=== PATIENT | male | born 1995 | race Caucasian/White ===

== ENCOUNTER 2016-09-07 09:50 | Emergency (ER) | payer BC ==
[2016-09-07 10:14] VITALS: BP 159/81
--- NOTE | 2016-09-07 11:27 | UC ---
Skin Complaint HPI - HPI Summary HPI Summary: itchy rash in groin and right ac and right ankle worse at night - History of Current Complaint Chief Complaint: UCSkin Time Seen by Provider: 09/07/16 11:00 Stated Complaint: ALLERGIC REACTION-RASH Hx Obtained From: Patient Onset/Duration: Sudden Onset, Lasting Days - 3, Still Present Timing: Constant Onset Severity: Mild Current Severity: Mild Pain Intensity: 4 Pain Scale Used: 0-10 Numeric Location: Discrete - right ankle right AC and Groin Character: Pruritus, Hives, Redness Aggravating: Nothing Alleviating: Nothing Associated Signs & Symptoms: Positive: Rash Related History: Possible Reaction to: Insect - Allergy/Home Medications Allergies/Adverse Reactions: Allergies Allergy/AdvReac Type Severity Reaction Status Date / Time No Known Allergies Allergy Verified 09/07/16 10:14 Home Medications: Home Medications Fexofenadine (NF) [Marilee 180 (NF)] 1 tab PO DAILY 09/07/16 [History Confirmed 09/07/16] Review of Systems Constitutional: Negative Skin: Rash - itchy red Eyes: Negative ENT: Negative Respiratory: Negative Cardiovascular: Negative Gastrointestinal: Negative Genitourinary: Negative Motor: Negative Neurovascular: Negative Musculoskeletal: Negative Neurological: Negative Psychological: Negative All Other Systems Reviewed And Are Negative: Yes PMH/Surg Hx/FS Hx/Imm Hx Previously Healthy: Yes Endocrine History Of: Denies: Diabetes, Thyroid Disease, Hyperthyroidism, Hypothyroidism, Dyslipidemia Cardiovascular History Of: Denies: Cardiac Disorders, Hypertension, Pacemaker/ICD, Myocardial Infarction , Congestive Heart Failure, Atrial Fibrillation, Deep Vein Thrombosis, Bleeding Disorders Respiratory History Of: Denies: COPD, Asthma, Bronchitis, Pneumonia, Pulmonary Embolism GI/ History Of: Denies: Gastroesophageal Reflux, Ulcer, Gastrointestinal Bleed, Gall Bladder Disease, Kidney Stones, Diverticulitis, Renal Disease, Urosepsis Neurological History Of: Denies: TIA, CVA, Dementia, Seizures, Migraine Psychological History Of: Denies: Anxiety, Depression, Bipolar Disorder, Schizophrenia, Post Traumatic Stress Disorder Cancer History Of: Denies: Lung Cancer, Colorectal Cancer, Breast Cancer, Prostate Cancer, Cervical Cancer Other History Of: Negative For: HIV, Hepatitis B, Hepatitis C, Anticoagulant Therapy - Surgical History Surgical History: Yes Surgery Procedure, Year, and Place: wisdom teeth, dental extractions - Family History Known Family History: Positive: None, Hypertension - FATHER, Diabetes - FATHER - Social History Occupation: Employed Full-time Lives: With Family Alcohol Use: Rare Substance Use Type: None Smoking Status (MU): Heavy Every Day Tobacco Smoker Type: Cigarettes Amount Used/How Often: 1 ppd Have You Smoked in the Last Year: Yes Household Exposure Type: Cigarettes Cessation Counseling: Counseled 3+Min - 10 Min - Immunization History Hx Tetanus, Diphtheria Vaccination: Yes Vaccination Up to Date: No Physical Exam Triage Information Reviewed: Yes Appearance: Well-Appearing, No Pain Distress, Well-Nourished Vital Signs: Initial Vital Signs Temp 99.4 F 09/07/16 10:07 Pulse 83 09/07/16 10:07 Resp 16 09/07/16 10:07 BP 159/81 09/07/16 10:07 Pulse Ox 100 09/07/16 10:07 Vital Signs Reviewed: Yes Eye Exam: Normal Eyes: Positive: Conjunctiva Clear ENT Exam: Normal ENT: Positive: Normal ENT inspection, Hearing grossly normal, Pharynx normal, TMs normal. Negative: Nasal congestion, Nasal drainage, Tonsillar swelling, Tonsillar exudate, Trismus, Muffled/hoarse voice Dental Exam: Normal Neck exam: Normal Neck: Positive: Supple, Nontender, No Lymphadenopathy Respiratory Exam: Normal Respiratory: Positive: Chest non-tender, Lungs clear, Normal breath sounds, No respiratory distress, No accessory muscle use Cardiovascular Exam: Normal Cardiovascular: Positive: RRR, No Murmur, Pulses Normal, Brisk Capillary Refill Musculoskeletal Exam: Normal Musculoskeletal: Positive: Strength Intact, ROM Intact, No Edema Neurological Exam: Normal Neurological: Positive: Alert, Muscle Tone Normal Psychological Exam: Normal Skin Exam: Other Skin: Positive: rashes Course/Dx - Course Course Of Treatment: premetherine 5% followed by cortisone cream for itching wash linen and clothing follow with pcp re-check prn - Differential Diagnoses - Skin Complaint Differential Diagnoses: Local Allergic Reaction, Poison Stephanie, Scabies, Tinea - Diagnoses Provider Diagnoses: Scabies Discharge - Discharge Plan Condition: Stable Disposition: HOME Prescriptions: Permethrin 5% CREAM* 1 applic TOPICAL SEE INSTRUCTIONS #60 gm Triamcinolone 0.1% CREAM(NF) [Kenalog Cream 0.1%(NF)] 1 applic TOPICAL BID #60 gm Patient Education Materials: How to Stop Smoking (ED), DASH Eating Plan (ED), Hypertension (ED), Scabies (ED) Referrals: No Primary Care Phys,NOPCP [Primary Care Provider] - Cosmo Webb MD [Medical Doctor] - If Needed
== END 2016-09-07 11:35 | disposition home or self-care (01) ==
LOC: UCEAST 09:50
DX: B86 Scabies (principal); F17.210 Nicotine dependence, cigarettes, uncomplicated; Z71.6 Tobacco abuse counseling
CPT/HCPCS: 99212; G0463

== ENCOUNTER 2016-11-28 17:47 | Emergency (ER) | payer BC ==
[2016-11-28 19:36] VITALS: BP 116/74
--- NOTE | 2016-11-28 20:02 | UC ---
Skin Complaint HPI - HPI Summary HPI Summary: WENT CAMPING 2 DAYS AGO. YESTERDAY NOTED SOME SWELLING RIGHT EYELIDS. TODAY WOKE UP WITH WORSENED EYELID SWELLING AND RED ITCHY RASH OVER ARMS, INNER THIGHS , ABDOMEN, FACE AND NECK. NO VISUAL DISTURBANCES OR NAUSEA. NO TONGUE SWELLING OR RESPIRATORY INVOLVEMENT. - History of Current Complaint Chief Complaint: UCSkin Time Seen by Provider: 11/28/16 19:51 Stated Complaint: RASHES,FACE,ARMS,STOMACH Hx Obtained From: Patient Onset/Duration: Sudden Onset, Lasting Hours, Still Present Skin Exposure Onset/Duration: Days Ago Timing: Constant Onset Severity: Moderate Current Severity: Moderate Pain Intensity: 0 Pain Scale Used: 0-10 Numeric Location: Diffuse Character: Pruritus Aggravating: Touch Alleviating: Nothing Associated Signs & Symptoms: Positive: Rash. Negative: Nausea, Vomiting, Fever , Chills, Cough, Wheezing, Chest Pain, Hoarseness, Throat Tightening, Abdominal Pain, Lightheadedness, Syncope, Drainage, Bruising, Tenderness, Red Streaks - Allergy/Home Medications Allergies/Adverse Reactions: Allergies Allergy/AdvReac Type Severity Reaction Status Date / Time No Known Allergies Allergy Verified 11/28/16 19:36 Home Medications: Home Medications Cetirizine* [ZyrTEC 10 MG TAB*] 10 mg PO DAILY PRN 11/28/16 [History Confirmed 11/28/16] Review of Systems Constitutional: Negative Skin: Rash Eyes: Other - EYELID SWELLING Respiratory: Negative Cardiovascular: Negative Gastrointestinal: Negative All Other Systems Reviewed And Are Negative: Yes PMH/Surg Hx/FS Hx/Imm Hx Previously Healthy: Yes Other History Of: Negative For: HIV, Hepatitis B, Hepatitis C, Anticoagulant Therapy - Surgical History Surgical History: Yes Surgery Procedure, Year, and Place: wisdom teeth, dental extractions - Family History Known Family History: Positive: Hypertension - FATHER, Diabetes - FATHER - Social History Alcohol Use: Occasionally Substance Use Type: None Smoking Status (MU): Former Smoker Type: Cigarettes Amount Used/How Often: 1 ppd Have You Smoked in the Last Year: Yes When Did the Patient Quit Smoking/Using Tobacco: 1 week ago Household Exposure Type: Cigarettes - Immunization History Hx Tetanus, Diphtheria Vaccination: Yes Vaccination Up to Date: No Physical Exam Triage Information Reviewed: Yes Appearance: Well-Appearing, No Pain Distress, Well-Nourished Vital Signs: Initial Vital Signs Temp 99.7 F 11/28/16 19:32 Pulse 64 11/28/16 19:32 Resp 16 11/28/16 19:32 BP 116/74 11/28/16 19:32 Pulse Ox 98 11/28/16 19:32 Vital Signs Reviewed: Yes Eyes: Positive: Conjunctiva Clear, Other: - RIGHT UPPER AND LOWER EYELID EDEMA ENT: Positive: Hearing grossly normal, Pharynx normal, TMs normal Neck: Positive: Supple, Nontender, No Lymphadenopathy Respiratory Exam: Normal Cardiovascular Exam: Normal Abdomen Description: Positive: Soft Musculoskeletal: Positive: No Edema Neurological: Positive: Alert Psychological: Positive: Age Appropriate Behavior Skin: Positive: rashes - PAPULAR ERYTHEMATOUS RASH WITH SEVERAL AREAS OF STREAK LIKE DISTRIBUTION OVER BILATERAL ARMS, INNER THIGHS, ABDOMEN, NECK AND FACE. Course/Dx - Diagnoses Provider Diagnoses: ALLERGIC DERMATITIS, ANGIOEDEMA Discharge - Discharge Plan Condition: Stable Disposition: HOME Prescriptions: Epinephrine [Epipen 2-Juanjo] 0.3 mg IM ONCE PRN #1 juanjo PRN Reason: Allergy Symptoms Triamcinolone 0.1% CREAM(NF) [Kenalog Cream 0.1%(NF)] 1 applic TOPICAL TID PRN # 1 tube PRN Reason: Itching predniSONE TAB* [Deltasone TAB*] 50 mg PO DAILY #5 tab Patient Education Materials: General Allergic Reaction (ED) Forms: *Work Release Referrals: No Primary Care Phys,NOPCP [Primary Care Provider] - Additional Instructions: USE DAILY MOISTURIZING LOTION AVOID HOT WATER TAKE OTC ANTIHISTAMINE DAILY (CLARITIN (LORATADINE), ZYRTEC (CETIRIZINE) OR MACO (FEXOFENADINE) IN THE MORNING, 50mg BENADRYL AT NIGHT) DO NOT SCRATCH KEEP COOL, CLEAN AND DRY GO TO THE ER WITHOUT FAIL IF YOU DEVELOP ANY RESPIRATORY INVOLVEMENT, SWELLING OF THE TONGUE OR OTHER CONCERNING SYMPTOMS. CONSIDER EVALUATION BY AN RURAL MAIL CARRIER [facility] Address: [address], [place] [address] [facility] [address] [place] [address] [address] [place], [place] [address] CALL THE NUMBER BELOW FOR ASSISTANCE IN ESTABLISHING WITH A PCP An additional resource available to assist in finding the appropriate physician for your health care needs is the [facility] ([facility]). You may contact them by calling [phone].
[2016-11-28] MEDS ORDERED: predniSONE TAB* 20 MG PO ONE (20:05)
[2016-11-28] MEDS ORDERED: diPHENhydraMINE PO* 50 MG PO ONE (20:05)
== END 2016-11-28 20:30 | disposition home or self-care (01) ==
LOC: UCEAST 17:47
DX: L23.9 Allergic contact dermatitis, unspecified cause (principal); T78.3XXA Angioneurotic edema, initial encounter
CPT/HCPCS: 99212; A9270-GY; G0463; J7512